=== PATIENT | male | born 1950 | race Caucasian/White ===

== ENCOUNTER 2016-09-07 10:20 | Day surgery (SDC) | payer MEDICARE ==
[~2016-09-07] VITALS: Ht 182.9 cm; Wt 74.0 kg
[2016-09-07] MEDS ORDERED: FENTANYL PF 250 MCG/5ML ONE (10:41)
[2016-09-07] MEDS ORDERED: MIDAZOLAM 1 MG/ML, 2ML ONE (10:41)
[2016-09-07] MEDS ORDERED: LIDOCAINE 1%, 2ML ONE (10:49)
[2016-09-07 10:55] VITALS: BP 151/85
[2016-09-07] MEDS ORDERED: LACTATED RINGERS 1,000 ML IV SCH (10:58)
[2016-09-07] MEDS ORDERED: LOSA50TA6 PO (11:15)
[2016-09-07] MEDS ORDERED: SIMV10TA3 PO (11:15)
[2016-09-07] MEDS ORDERED: LEVO25TA4 PO (11:15)
[2016-09-07] MEDS ORDERED: TAMS0.4C2 PO (11:15)
[2016-09-07] MEDS ORDERED: CYCL-259 PO (11:15)
[2016-09-07] MEDS ORDERED: HYDROCODONE PO (11:15)
[2016-09-07] MEDS ORDERED: PLEASE ENTER ALLERGIES MC SCH ×2 (11:30)
[2016-09-07 11:37] LABS: ASPARTATE AMINO TRANSFERASE 23 U/L (15-37); BLOOD UREA NITROGEN 13 mg/dL (7-18)
[2016-09-07] MEDS ORDERED: BACITRACIN 50,000 UNIT ONE (11:56)
[2016-09-07] MEDS ORDERED: BUPIVACAINE/PF-EPI 0.5% 1:200K ONE (11:56)
[2016-09-07] MEDS ORDERED: DEXAMETHASONE 4 MG/ML, 1ML ONE (12:14)
[2016-09-07] MEDS ORDERED: GLYCOPYRROLATE 0.2MG/1ML ONE (12:14)
[2016-09-07] MEDS ORDERED: PHENYLEPHRINE 10 MG/ML ONE (12:14)
[2016-09-07] MEDS ORDERED: ONDANSETRON 2MG/ML, 2ML ONE (12:14)
[2016-09-07] MEDS ORDERED: EPHEDRINE 50 MG/ML, 1ML ONE (12:14)
[2016-09-07] MEDS ORDERED: PROPOFOL 10 MG/ML, 20ML ONE (12:14)
[2016-09-07] MEDS ORDERED: NEOSTIGMINE 1 MG/ML, 10ML ONE (12:14)
[2016-09-07] MEDS ORDERED: KETOROLAC 30 MG/1 ML ONE (12:14)
[2016-09-07] MEDS ORDERED: CEFAZOLIN 1,000 MG ONE (12:14)
[2016-09-07] MEDS ORDERED: ROCURONIUM 10 MG/ML ONE (12:14)
[2016-09-07] MEDS ORDERED: FENTANYL PF 100 MCG/2ML IV PRN (13:00)
[2016-09-07] MEDS ORDERED: ACETAMINOPHEN 325 MG TABLET PO PRN (13:00)
[2016-09-07] MEDS ORDERED: EPHEDRINE 50 MG/ML, 1ML IVPush PRN (13:00)
[2016-09-07] MEDS ORDERED: OXYcodone 5 MG/5 ML ORAL.SOL UDC PO PRN (13:00)
[2016-09-07] MEDS ORDERED: LABETALOL 5MG/ML, 20ML IV PRN (13:00)
[2016-09-07] MEDS ORDERED: HYDROmorphone 1 MG/ML, 1ML IV PRN (13:00)
[2016-09-07] MEDS ORDERED: ONDANSETRON 2MG/ML, 2ML IVPush PRN (13:00)
[2016-09-07] MEDS ORDERED: MIDAZOLAM 1 MG/ML, 2ML IV PRN (13:00)
[2016-09-07] MEDS ORDERED: PROMETHAZINE 25 MG/ML, 1ML IV PRN (13:00)
[2016-09-07] MEDS ORDERED: MEPERIDINE/PF 25MG/0.5ML IVPush PRN (13:00)
[2016-09-07] MEDS ORDERED: HYDROcodone/APAP 7.5-325MG/15ML UDC PO PRN (13:00)
[2016-09-07] MEDS ORDERED: hydrALAzine 20 MG/ML, 1ML IV PRN (13:00)
[2016-09-07] MEDS ORDERED: BACITRACIN 50,000 UNIT IM ONE (13:05)
[2016-09-07] MEDS ORDERED: BUPIVACAINE/PF-EPI 0.5% 1:200K INFIL ONE (13:05)
[2016-09-07] MEDS ORDERED: FENTANYL PF 100 MCG/2ML ONE (14:01)
[2016-09-07] MEDS ORDERED: HYDROcodone/APAP 7.5-325MG/15ML UDC ONE (14:02)
== END 2016-09-07 17:00 ==
LOC: OUT 10:20
PROVIDERS: ATTEND Surgery
DX: K40.20 Bilateral inguinal hernia, without obstruction or gangrene, not specified as recurrent (principal); K42.9 Umbilical hernia without obstruction or gangrene; E78.00 Pure hypercholesterolemia, unspecified; I10 Essential (primary) hypertension; E03.9 Hypothyroidism, unspecified; Z87.39 Personal history of other diseases of the musculoskeletal system and connective tissue; Z98.890 Other specified postprocedural states; Z82.3 Family history of stroke; Z80.0 Family history of malignant neoplasm of digestive organs; Z82.49 Family history of ischemic heart disease and other diseases of the circulatory system; Z81.8 Family history of other mental and behavioral disorders; Z72.89 Other problems related to lifestyle
CPT/HCPCS: 36415; 49585; 49650; 80053; 93005; C1727; C1781; J0690; J1100; J1885; J2250; J2370; J2405; J2704; J2710; J3010; J7120; J3490

== ENCOUNTER → 2017-03-13 | Outpatient (CLI) | payer MEDICARE ==
[~2017-03-13] MED LIST: CYCL-259 PO; HYDROCODONE PO; LEVO25TA4 PO; LOSA50TA6 PO; SIMV10TA3 PO; TAMS0.4C2 PO
== END | disposition home or self-care (01) ==
LOC: CFH 11:41
DX: M54.5 Low back pain (principal)
CPT/HCPCS: 72114

== ENCOUNTER → 2017-04-02 | Outpatient (CLI) | payer MEDICARE | END | disposition home or self-care (01) | LOC: CFH 12:12 | DX: M25.551 Pain in right hip (principal); G89.29 Other chronic pain ==